=== PATIENT | female | born 1960 | race Two or more races ===

== ENCOUNTER 2024-07-19 20:03 | Inpatient (IN) | payer OTHER ==
[~2024-07-19] VITALS: Ht 162.6 cm; Wt 95.3 kg
[2024-07-19 21:41] LABS: BASOPHILS % 0.5 % (0.0-2.0); DIFFERENTIAL COMMENT 0; EOSINOPHILS % 2.2 % (0.0-5.0); HEMATOCRIT. 39.8 % (36.0-48.0); HEMOGLOBIN. 12.6 g/dL (12.0-16.0); LYMPHOCYTES % 19.9 % (20.0-50.0); MEAN CORPUSCULAR HEMOGLOBIN 24.7 pg (28.0-32.0); MEAN CORPUSCULAR HGB CONC 31.6 g/dL (31.0-37.0); MEAN CORPUSCULAR VOLUME 78.1 fL (81.0-99.0); MEAN PLATELET VOLUME 8.7 fl (7.4-10.4); MONOCYTES % 5.1 % (2.0-8.0); NEUTROPHILS % 72.3 % (40.0-76.0); PLATELET 258 x1000/uL (130-400); WHITE BLOOD COUNT 14.2 x1000/uL (4.5-11.0)
[2024-07-19 21:42] LABS: CHLORIDE 108 mEq/L (98-107); POTASSIUM 3.7 mEq/L (3.5-5.1); SODIUM 141 mEq/L (136-145)
[2024-07-19 21:43] LABS: CALCIUM 9.2 mg/dL (8.7-10.4); CARBON DIOXIDE 24 mEq/L (21-32)
[2024-07-19 21:46] LABS: INR 0.9; PROTHROMBIN TIME 10.6 sec (9.6-11.0)
[2024-07-19 21:48] LABS: CREATININE 1.7 mg/dL (0.6-1.0); GLUCOSE 121 mg/dL (70-105)
[2024-07-19 21:49] LABS: UREA NITROGEN BLOOD 22 mg/dL (9-23)
[2024-07-19 21:50] LABS: ALANINE AMINOTRANSFERASE 46 IU/L (10-49); ALBUMIN 4.2 g/dL (3.2-4.8); ASPARTATE AMINOTRANSFERASE 38 IU/L (<34); BILIRUBIN DIRECT 0.1 mg/dL (<=3.0)
[2024-07-19 21:51] LABS: BILIRUBIN TOTAL 0.4 mg/dL (0.1-1.0); PROTEIN TOTAL 7.1 g/dL (6.0-8.3)
[2024-07-19 22:23] LABS: ETHANOL BLOOD < 10 mg/dL (<10); TROPONIN I HIGH SENSITIVITY < 4 ng/L (3.0-34)
[2024-07-20] MEDS ORDERED: DOCUSATE SODIUM 100MG CAPSULE PO PRN (05:00)
[2024-07-20] MEDS ORDERED: ONDANSETRON HCL 4MG/2ML INJ IV PRN (05:00)
[2024-07-20] MEDS ORDERED: IPRATROPIUM/ALBUTEROL 0.5-3(2.5)MG/3ML NEB HHN PRN (05:00)
[2024-07-20] MEDS ORDERED: DEXTROSE 50% WATER 50ML SYRINGE IV PRN (05:00)
[2024-07-20] MEDS ORDERED: CLONIDINE 0.1MG TABLET PO PRN (05:00)
[2024-07-20] MEDS: SODIUM CHLORIDE 0.9% 1,000 ML IV SCH (05:52)
[2024-07-20] MEDS: MAGNESIUM/ALUMINUM HYDROXIDE/SIMETHICONE 30ML UDC PO PRN (05:53)
[2024-07-20] MEDS ORDERED: AMLO5TAB88 PO (06:26)
[2024-07-20] MEDS ORDERED: SPIR25TA6 PO (06:26)
[2024-07-20 08:02] LABS: TRIGLYCERIDE 118 mg/dL (0-150)
[2024-07-20 08:03] LABS: LDL CHOLESTEROL 139 mg/dL (5-100)
[2024-07-20 08:04] LABS: CHOLESTEROL 195 mg/dL (<200); CREATINE KINASE 74 IU/L (34-145); HDL CHOLESTEROL 37 mg/dL (>65)
[2024-07-20 08:06] LABS: TROPONIN I HIGH SENSITIVITY < 4 ng/L (3.0-34)
[2024-07-20 08:07] LABS: THYROID STIMULATING HORMONE 1.32 uIU/mL (0.55-4.78)
[2024-07-20 09:30] VITALS: BP 137/56; PULSE 77; RESP 18; TEMP 36.114; O2SAT 100
[2024-07-20 10:40] VITALS: BP 134/56; PULSE 77; RESP 18; TEMP 36.14
[2024-07-20 11:13] LABS: *AMPHETAMINES SCREEN URINE NEGATIVE (NEGATIVE); *BARBITURATES SCREEN URINE NEGATIVE (NEGATIVE); *BENZODIAZEPINES SCREEN URINE NEGATIVE (NEGATIVE); *COCAINE SCREEN URINE NEGATIVE (NEGATIVE)
[2024-07-20 11:14] LABS: CANNABINOID URINE SCREEN NEGATIVE (NEGATIVE); ECSTASY MDMA SCREEN URINE NEGATIVE (NEGATIVE); METHADONE URINE SCREEN NEGATIVE (NEGATIVE); OPIATES URINE SCREEN NEGATIVE (NEGATIVE); PHENCYCLIDINE URINE SCREEN NEGATIVE (NEGATIVE)
[2024-07-20 11:48] LABS: CLARITY URINE CLEAR (CLEAR); COLOR URINE YELLOW (YELLOW); SPECIFIC GRAVITY URINE 1.025 (1.005-1.030)
[2024-07-20 11:49] LABS: GLUCOSE URINE NEGATIVE (NEGATIVE); KETONES URINE NEGATIVE (NEGATIVE); LEUKOCYTE ESTERASE URINE 1+ (NEGATIVE); NITRITE URINE NEGATIVE (NEGATIVE); OCCULT BLOOD URINE NEGATIVE (NEGATIVE); PROTEIN URINE NEGATIVE (NEGATIVE)
[2024-07-20 11:57] VITALS: BP 130/64; PULSE 64; RESP 18; TEMP 36.114; O2SAT 98
[2024-07-20 12:15] LABS: BACTERIA URINE 1+; HYALINE CASTS URINE 0-5 /lpf; RBC URINE NONE SEEN /hpf (0-2); SQUAMOUS EPITHELIAL CELL URINE FEW /lpf (RARE/1+); YEAST URINE NONE SEEN
[2024-07-20 16:00] VITALS: BP 139/57; PULSE 74; RESP 18; TEMP 36.16956; O2SAT 100
[2024-07-20 16:04] LABS: CREATINE KINASE 77 IU/L (34-145)
[2024-07-20 16:13] LABS: TROPONIN I HIGH SENSITIVITY < 4 ng/L (3.0-34)
[2024-07-20] MEDS ORDERED: LACTULOSE 20G/30ML UDC PO PRN (16:30)
[2024-07-20 20:00] VITALS: BP 149/56; PULSE 75; RESP 18; TEMP 36.50292; O2SAT 98
[2024-07-20] MEDS: FAMOTIDINE 20MG TABLET PO SCH (21:20)
[2024-07-21] VITALS: BP 155/65; PULSE 71; RESP 18; TEMP 36.3918; O2SAT 98
[2024-07-21 06:13] LABS: POTASSIUM 3.8 mEq/L (3.5-5.1)
[2024-07-21 06:15] LABS: CALCIUM 9.2 mg/dL (8.7-10.4)
[2024-07-21 06:19] LABS: CREATININE 1.2 mg/dL (0.6-1.0)
[2024-07-21 06:26] LABS: T4 FREE 1.12 ng/dL (0.89-1.76)
[2024-07-21 07:52] LABS: BASOPHILS % 0.8 % (0.0-2.0); DIFFERENTIAL COMMENT 0; EOSINOPHILS % 4.2 % (0.0-5.0); HEMATOCRIT. 34.1 % (36.0-48.0); HEMOGLOBIN. 10.9 g/dL (12.0-16.0); LYMPHOCYTES % 44.8 % (20.0-50.0); MEAN CORPUSCULAR HEMOGLOBIN 24.8 pg (28.0-32.0); MEAN CORPUSCULAR HGB CONC 32.1 g/dL (31.0-37.0); MEAN CORPUSCULAR VOLUME 77.4 fL (81.0-99.0); MONOCYTES % 5.2 % (2.0-8.0); PLATELET 237 x1000/uL (130-400); RED CELL DISTRIBUTION WIDTH 14.6 % (11.6-14.6); WHITE BLOOD COUNT 8.7 x1000/uL (4.5-11.0)
[2024-07-21 08:00] VITALS: BP 148/62; PULSE 63; RESP 18; TEMP 36.33624; O2SAT 99
[2024-07-21] MEDS: AMLODIPINE 5MG TABLET PO SCH (08:16)
[2024-07-21 12:00] VITALS: BP 156/66; PULSE 64; RESP 18; TEMP 36.44736; O2SAT 100
[2024-07-21 13:22] VITALS: BP 156/68; PULSE 63; TEMP 97.4; O2SAT 99
== END 2024-07-21 14:50 | disposition home or self-care (01) | DRG 872 ==
LOC: ER 20:03 → 7WST 07-20 03:15
PROVIDERS: ADMIT Preventive Medicine Clinical Informatics; ATTEND Preventive Medicine Clinical Informatics
DX: A41.9 Sepsis, unspecified organism (principal); I10 Essential (primary) hypertension; K80.20 Calculus of gallbladder without cholecystitis without obstruction; E86.1 Hypovolemia; N20.0 Calculus of kidney; T50.995A Adverse effect of other drugs, medicaments and biological substances, initial encounter; Y92.89 Other specified places as the place of occurrence of the external cause; Z79.899 Other long term (current) drug therapy
CPT/HCPCS: 36415; 71045; 74176; 76700; 80048; 80061; 80076; 80305; 80320; 81003; 82550; 83036; 83605; 83735; 83880; 84100; 84145; 84439; 84443; 84484; 85025; 93005; 93306; 99285; G0480